=== PATIENT | male | born 1985 | race African-American/Black ===

== ENCOUNTER 2018-10-23 12:47 | Emergency (ER) | payer SELFPAY ==
[~2018-10-23] VITALS: Ht 175.3 cm; Wt 68.0 kg
[2018-10-23] MEDS ORDERED: TRAMADOL 50MG TABLET PO ONE (16:30)
[2018-10-23] MEDS ORDERED: KETOROLAC 30MG/ML VIAL IV ONE (16:30)
[2018-10-23 16:37] LABS: BASOPHILS % 0.5 % (0.0-2.0); EOSINOPHILS % 3.2 % (0.0-5.0); HEMATOCRIT. 44.4 % (42.0-52.0); HEMOGLOBIN. 15.4 g/dL (14.0-18.0); LYMPHOCYTES % 24.8 % (20.0-50.0); MEAN CORPUSCULAR HEMOGLOBIN 29.7 pg (28.0-32.0); MEAN PLATELET VOLUME 6.6 fl (7.4-10.4); MONOCYTES % 9.7 % (2.0-8.0); NEUTROPHILS % 61.8 % (40.0-76.0); PLATELET 395 x1000/uL (130-400); RED BLOOD CELL COUNT 5.17 mill/uL (4.7-6.1); RED CELL DISTRIBUTION WIDTH 14.4 % (11.6-14.6)
[2018-10-23 20:59] VITALS: BP 121/81
[2018-10-23] MEDS ORDERED: IOHEXOL-350 100 ML BOTTLE ONE (21:05)
== END 2018-10-23 21:01 | disposition home or self-care (01) ==
LOC: ER 12:47
DX: R09.1 Pleurisy (principal); R07.89 Other chest pain; Z87.09 Personal history of other diseases of the respiratory system; Z87.01 Personal history of pneumonia (recurrent); Z98.890 Other specified postprocedural states
CPT/HCPCS: 36415; 71275; 82565; 85025; 93005; 96374; 99284; J1885; Q9967